=== PATIENT | male | born 1965 | race Two or more races ===

== ENCOUNTER → 2017-12-02 | Outpatient (CLI) | payer OTHER ==
[2017-12-02] MEDS: IOHEXOL 240 MG/ML 50ML VIAL. PO (14:30)
[2017-12-02] MEDS: IOHEXOL 300 MG/ML 100ML VIAL. IV (14:30)
== END | disposition home or self-care (01) ==
LOC: US 13:36
DX: K40.20 Bilateral inguinal hernia, without obstruction or gangrene, not specified as recurrent (principal)
CPT/HCPCS: 74170; 76870; Q9966; Q9967